=== PATIENT | male | born 1950 | race Caucasian/White ===

== ENCOUNTER → 2017-06-26 | Outpatient (CLI) | payer OTHER ==
[~2017-06-26] MED LIST: ANUSOL1 SUPP PR; COLACE100 MG PO; DICLOFENAC SODI25 MG PO; DICLOFENAC SODI75 MG PO; Flagyl PO; GLUCOPHAGE500 MG PO; HUMIRA20 MG/0.4 SC; HYDROCODON-ACE1 EAC7 PO; LOTREL 10/21 CAPSULE PO; Levaquin PO; OxyCODONE PO; ULTRAM50 MG PO
== END | disposition home or self-care (01) ==
LOC: AMB 09:06
PROC: 0HB6XZZ Excision of Back Skin, External Approach (ICD-10-PCS; principal; 2017-06-26)
DX: C44.529 Squamous cell carcinoma of skin of other part of trunk (principal)
CPT/HCPCS: 88305